=== PATIENT | female | born 1950 | race American Indian/Alaskan Native ===

== ENCOUNTER 2018-08-26 19:29 | Emergency (ER) | payer MEDICARE ==
[2018-08-26] MEDS ORDERED: Bacitracin Zinc 1 Packet ONE (19:52)
[2018-08-26] MEDS ORDERED: Sulfameth/Trimethoprim DS 800-160mg TAB ONE (20:14)
== END 2018-08-26 20:07 | disposition home or self-care (01) ==
LOC: SCSER 19:29
DX: S50.872A Other superficial bite of left forearm, initial encounter (principal); W54.0XXA Bitten by dog, initial encounter
CPT/HCPCS: 99283